=== PATIENT | male | born 1945 ===

== ENCOUNTER 2021-02-14 08:04 | Day surgery (SDC) | payer MEDICARE ==
[~2021-02-14] VITALS: Ht 175.3 cm; Wt 111.2 kg
[2021-02-14] MEDS ORDERED: TRULICITY0.75 MG/0. SQ (08:53)
[2021-02-14] MEDS ORDERED: ELIQUIS 5MG PO (08:53)
[2021-02-14] MEDS ORDERED: CALAN120 MG PO (08:53)
[2021-02-14] MEDS ORDERED: COZAAR 50MG50 MG/TAB PO (08:55)
[2021-02-14] MEDS ORDERED: MAXZIDE-25MG TA1 TAB PO (08:55)
[2021-02-14] MEDS ORDERED: ZYLOPRIM 300MG300 MG PO (08:56)
[2021-02-14] MEDS ORDERED: NAPROSYN500 MG PO (08:56)
[2021-02-14] MEDS ORDERED: TRELEGY ELLIPT1 EACH IH (08:56)
[2021-02-14] MEDS ORDERED: B-12 500 MCG PO (08:57)
[2021-02-14] MEDS ORDERED: VITAMIN E 400 U4001 PO (08:57)
[2021-02-14] MEDS ORDERED: VITAMIN C500 MG PO (08:57)
[2021-02-14] MEDS ORDERED: NATURAL POTASS595 MG PO (08:58)
[2021-02-14] MEDS ORDERED: EPA FISH OIL1 SGL PO (08:58)
[2021-02-14] MEDS ORDERED: SINGULAIR 110 MG/TAB PO (09:03)
[2021-02-14 09:22] VITALS: BP 157/75; PULSE 59; TEMP 98
[2021-02-14 09:24] LABS: HEMATOCRIT 48.2 % (42.0-52.0); HEMOGLOBIN 15.3 g/dl (13.5-18.0); MEAN CELL VOLUME 89 fl (80.0-100.0); MEAN CORPUSCULAR HEMOGLOBIN 28 pg (27.0-31.0); MEAN CORPUSCULAR HGB CONC 32 g/dl (33.0-37.0); MEAN PLATELET VOLUME 10.6 fl (7.4-10.4); PLATELET COUNT 224 K/mm3 (130-400); RED BLOOD COUNT 5.43 M/mm3 (4.20-5.60); REDCELL DISTRIBUTION WIDTH-CV 14.6 % (11.5-14.5)
[2021-02-14 09:27] LABS: INR 1.5 (0.8-3.0); PROTHROMBIN TIME 17.1 SECONDS (9.7-12.8)
[2021-02-14 09:34] LABS: CALCIUM 8.7 mg/dL (8.4-10.2); CREATININE, serum 1.2 (0.66-1.25); MAGNESIUM 2.1 mg/dL (1.6-2.3); POTASSIUM 4.4 mmol/L (3.4-5.0)
[2021-02-14 10:04] LABS: THYROID STIMULATING HORMONE 5.28 uIU/mL (0.465-4.680)
[2021-02-14 10:22] LABS: BAND 1 % (0-10); EOSINOPHIL 23 % (0-4); LYMPHOCYTE 19 % (20.0-51.0); NEUTROPHILS 52 % (42.0-75.2); PLATELET ESTIMATE NORMAL (NORMAL)
[2021-02-14] MEDS ORDERED: MULTAQ400 MG PO (10:34)
[2021-02-14 10:45] VITALS: BP 139/67; PULSE 77
[2021-02-14 11:00] VITALS: BP 137/67; PULSE 74
[2021-02-14 11:15] VITALS: BP 135/82; PULSE 72
[2021-02-14 11:30] VITALS: BP 137/79; PULSE 76
[2021-02-14 11:45] VITALS: BP 147/70; PULSE 83
--- NOTE | 2021-02-14 12:36 | NUR ---
DC instructions reviewed with pt and . Both express understanding. Pt aware that he should not take his usual morning dose of eliquis as it was given here following procedure. He is steady on feet. Taking PO fluids without issue. IV DC'd with catheter intact. He is assisted out by wheelchair to 's car.
== END 2021-02-14 12:00 | disposition home or self-care (01) ==
LOC: COL.CAR 08:04
PROVIDERS: Internal Medicine Cardiovascular Disease
DX: I48.91 Unspecified atrial fibrillation (principal); I10 Essential (primary) hypertension; E11.9 Type 2 diabetes mellitus without complications; G47.30 Sleep apnea, unspecified; J32.9 Chronic sinusitis, unspecified; E66.9 Obesity, unspecified; J45.909 Unspecified asthma, uncomplicated; J44.9 Chronic obstructive pulmonary disease, unspecified; Z90.89 Acquired absence of other organs; Z86.16 Personal history of COVID-19; Z87.891 Personal history of nicotine dependence; Z88.0 Allergy status to penicillin; Z79.84 Long term (current) use of oral hypoglycemic drugs; Z79.899 Other long term (current) drug therapy; Z68.36 Body mass index [BMI] 36.0-36.9, adult
CPT/HCPCS: J2704

== ENCOUNTER 2023-09-18 17:32 | Inpatient (IN) | payer MEDICARE ==
[~2023-09-18] VITALS: Ht 175.3 cm; Wt 104.6 kg
[~2023-09-18 17:32] MED LIST: B-12 500 MCG PO; CALAN120 MG PO; COZAAR 50MG50 MG/TAB PO; ELIQUIS 5MG PO; EPA FISH OIL1 SGL PO; MAXZIDE-25MG TA1 TAB PO; MULTAQ400 MG PO; NAPROSYN500 MG PO; NATURAL POTASS595 MG PO; SINGULAIR 110 MG/TAB PO; TRELEGY ELLIPT1 EACH IH; TRULICITY0.75 MG/0. SQ; VITAMIN C500 MG PO; VITAMIN E 400 U4001 PO; ZYLOPRIM 300MG300 MG PO
[2023-09-19 10:46] VITALS: BP 152/85; PULSE 67; TEMP 97.7
[2023-09-19] MEDS ORDERED: PEPCID 20MG TAB20 MG PO (10:49)
[2023-09-19] MEDS ORDERED: CRESTOR 10MG10 MG PO (10:50)
[2023-09-19] MEDS ORDERED: ASPIRIN 81M81 MG/TA2 PO (10:51)
[2023-09-19] MEDS ORDERED: ZYLOPRIM 300MG300 MG PO (10:51)
[2023-09-19] MEDS ORDERED: PLAVIX 75MG TAB75 MG PO (10:52)
[2023-09-19] MEDS ORDERED: LASIX 80MG TABL80 MG PO (10:53)
[2023-09-19] MEDS ORDERED: JARDIANCE10 PO (10:53)
[2023-09-19] MEDS ORDERED: COZAAR 50MG50 MG/TAB PO (10:54)
[2023-09-19] MEDS ORDERED: THEO-24400 MG PO (10:55)
[2023-09-19] MEDS ORDERED: TRELEGY ELLIPT1 EACH IH (10:56)
--- NOTE | 2023-09-19 10:59 | NUR ---
New pt arrived to unit from [facility] via wheelchair. He is a/o x 4, pleasant. Pt has a small skin tear to Left lower goncalves that happened while he was trying to get into a truck to go to the ED for his CVA sx. All other skin is intact. Pt has an ipad w/ proposal editor at the bedside. Denies any other valuable items. Orientation provided to room/unit. Pt is currently off the unit for PT joe.
--- NOTE | 2023-09-19 11:44 | NUR ---
Pt back in his room after working w/ PT. Pt had questions about IPR schedule - scheduled reviewed w/ the pt. Pt sitting up in the recliner. Denies pain/discomfort. Last dose Trulicity was on 09/11 per pt & will bring in today. Pt denies any other needs at this time. Call light in reach. Chair alarm is on.
[2023-09-19 13:03] VITALS: BP_SYST 152
--- NOTE | 2023-09-19 13:04 | NUR ---
Pt off unit w/ PT.
--- NOTE | 2023-09-19 16:11 | NUR ---
Has lack of transportation kept you from medical appts, meetings, work, or from getting things needed for daily living? NO How often do you feel lonely or isolated from those around you? NEVER Over the past 5 days, how much of the time has pain made it hard for you to sleep? FREQUENTLY Over the past 5 days, how often have you limited your participation in therapy due to pain? RARELY/NOT AT ALL Over the past 5 days, how often have you limited your day-to-day activities because of pain? RARELY/NOT AT ALL Have you had 2 or more falls in the past year or any fall with an injury? NO Did you have major surgery during the 100 days prior to admission? NO
[2023-09-19 16:32] VITALS: BP 129/72; PULSE 69; TEMP 98
[2023-09-19 17:13] VITALS: BP_SYST 129
--- NOTE | 2023-09-19 17:33 | NUR ---
Pt sitting up in the recliner eating dinner independently. & son are at the bedside. brought in [facility] - located in [facility]. Pt denies pain/discomfort. Denies other needs. Call light in his reach. Chair alarm is on.
[2023-09-19 20:00] VITALS: BP_SYST 129
--- NOTE | 2023-09-19 20:00 | NUR ---
PT A&0X4. RESTING IN BED. SEE COMPLETED SHIFT REPORT. PT STRONG BILAT, NO DEFICITS NOTED. NO NEEDS AT THSI TIME. GAVE TYLENOL FOR GENERAL ACHES PER REQUEST.
--- NOTE | 2023-09-19 21:00 | NUR ---
RT SET UP CPAP WITH 02 AT 2L. READY FOR SLEEP.
--- NOTE | 2023-09-20 00:30 | NUR ---
ASSISTED PT TO BR WITH WALKER. NEEDED ASSIST WITH SITTING UP ON SIDE OF BED. WEAKER ON RT LEG. UNSTEADY GAIT. VOIDED W/O DIFFICULTY. BACK TO BED. PT ABLE TO LIFT LEGS INTO BED. SCD'S INITIATED. PT REFUSES ON RT LEG R/T LLE ABRASION. CALL LIGHT IN REACH. BED ALARM SET.
[2023-09-20 05:33] VITALS: BP 153/95; PULSE 77; TEMP 97.3
--- NOTE | 2023-09-20 07:24 | NUR ---
Shift report received from night RN. No events reported overnight. Pt sitting up in recliner to eat breakfast. He reports taking Melatonin for sleep last night & slept well. No pain this morning. Call light in reach. Chair alarm on.
[2023-09-20 08:00] VITALS: BP_SYST 153
--- NOTE | 2023-09-20 08:00 | NUR ---
Pt off unit w/ PT.
--- NOTE | 2023-09-20 10:48 | NUR ---
Pt sitting up in recliner listening to music. Pain/discomfort denied. Other needs denied. Call light in reach. Chair alarm on.
--- NOTE | 2023-09-20 13:05 | NUR ---
Pt ambulating off unit w/ PT.
[2023-09-20 17:09] VITALS: BP 163/74; PULSE 77; TEMP 99
--- NOTE | 2023-09-20 17:13 | NUR ---
trailhead construction worker met with patient to welcome him to the IPR unit and discuss discharge planning. Patient reports he lives in [place] with his Ailin, P# [phone]. PCP is Scott Chavez, preferred pharmacy is [facility] in [place]. Patient reports he has been able to afford his medications but they are getting more expensive. SW discussed [facility], [facility] and discussing other options with the pharmacy and primary care physician to see if there was a way to make them more affordable. Patient does not have a DPOA-HC but wanted a form to review and may be interested in completing one during his hospital stay. Patient reports he has oxygen and a cane at home. Patient reports being independent with ADLS prior to hospitalization. is able to transport to and from appointments while he recovers. Patient is interested in home health services if recommended at discharge. Patient has questions about getting on disability through the social security office, SW will follow up with the patient on this.
--- NOTE | 2023-09-20 18:13 | NUR ---
Pt sitting up in recliner watching tv. Pain/discomfort denied. Other needs denied. Call light in reach. Chair alarm on.
[2023-09-20 19:00] VITALS: BP_SYST 163
--- NOTE | 2023-09-20 20:30 | NUR ---
PT RESTING IN BED. A&OX4. PLEASANT AND COOPERATIVE. SEE COMPLETED SHIFT ASSESSMENT. C/O OF GENERAL ACHES. SEE MAR FOR TYLENOL GIVEN. PT W/UNSTEADY GAIT. DRAGS LT FOOT ALITTLE. PT APPEARS SL BOW LEGGED. NEEDS CUES FOR WALKER SAFETY. LEAVES IT BEHIND. CALL LIGHT IN REACH. BED ALARM SET.
[2023-09-21 05:24] VITALS: BP 154/79; PULSE 64; TEMP 97.9
--- NOTE | 2023-09-21 05:58 | NUR ---
PT HAS BEEN SITTING IN RECLINER FOR A FEW HOURS. DENIES NEEDS. CALL LIGHT IN REACH. CHAIR ALARM SET.
[2023-09-21 07:19] VITALS: BP_SYST 154
--- NOTE | 2023-09-21 09:39 | NUR ---
Patient alert and oriented x4 this morning. Shift assessment complete, no new variances noted. Patient sitting up in recliner upon entering room, denies pain at this time. Tolerated breakfast well. Mood is pleasant. Scattered bruising noted to skin, large bruise note to ankles and sides of feet. Skin tear to left elbow closed, dressing CDI. Abrasion to right goncalves closed. Dressing CDI. Call light within reach, all needs met at this time. Fall precautions in place.
[2023-09-21] MEDS ORDERED: DESYREL 50MG50 MG PO (10:23)
[2023-09-21] MEDS ORDERED: UNIPHYL 400MG400 MG PO (10:23)
--- NOTE | 2023-09-21 12:23 | NUR ---
Data: Patient accepted [facility] visit offered during Manager Behavioral rounds. Assessment: Patient is outgoing and enjoys conversation. Plan of Care: Manager Behavioral provided supportive listening as Patient discussed his stroke and reviewed his life. Patient accepted a rosary from Manager Behavioral. Manager Behavioral offered a prayer.
--- NOTE | 2023-09-21 14:58 | NUR ---
Patient remains stable. Up in recliner with chair alarm on, tolerates ambulation to bathroom and back well x1 with walker. Visitors at bedside, call light within reach.
[2023-09-21 17:33] VITALS: BP 145/78; PULSE 76; TEMP 97.6
[2023-09-21 18:30] VITALS: BP_SYST 145
--- NOTE | 2023-09-22 05:11 | NUR ---
PT UP TO BR THEN TO RECLINER. SL UNSTEADY AT TIMES W. WALKER. LLE WEAKER THAN RT. PT ADMITS TO LUE WEAKNESS BUT GETTING BETTER.
[2023-09-22 05:45] VITALS: BP 150/79; PULSE 79; TEMP 98.3
[2023-09-22 06:57] VITALS: BP_SYST 150
--- NOTE | 2023-09-22 06:58 | NUR ---
Shift report received from night RN. Pt sitting up in recliner for breakfast. Denies pain/discomfort. No events reported overnight. Call light in reach. Chair alarm on.
--- NOTE | 2023-09-22 10:59 | NUR ---
Pt off unit for Group Therapy.
--- NOTE | 2023-09-22 12:12 | NUR ---
Pt sitting up in the recliner to eat lunch. Pt denies pain & denies other needs. Family members are at the bedside & brought lunch for the pt. Pt has his call light in reach. Chair alarm is on.
[2023-09-22 17:28] VITALS: BP 159/74; PULSE 74; TEMP 97.6
--- NOTE | 2023-09-22 17:40 | NUR ---
Pt sitting up in the recliner watching tv after eating approx 80% of his dinner independently. Pt denies pain/discomfort. Denies other needs. Call light in reach. Chair alarm on.
[2023-09-22 18:30] VITALS: BP_SYST 159
--- NOTE | 2023-09-22 20:15 | NUR ---
PT RESTING IN BED. STILL IMPULSIVE AND FORGETFUL. NO FURTHER DIARRHEA FOR SEVERAL DAYS AFTER SHE HAD RECEIVED LAXITIVES. STILL IN ISOLATION UNTIL STOOL IS OBTAINED. WILL ASK FOR ISOLATION DC. PT C/O PERSISTENT FULTON. VSS. SEE MAR FOR OXYCODONE GIVEN. HERE. VERY SUPPORTIVE. CALL LIGHT IN REACH. BED ALARM SET.
--- NOTE | 2023-09-22 21:00 | NUR ---
PT REQUESTED MIRALAX. GIVEN.
--- NOTE | 2023-09-23 04:00 | NUR ---
PT ASSISTED CGA WITH WALKER TO BR. VOIDED W/O DIFFICULTY. AMB TO RECLINER. CPAP OFF NOW. CHAIR ALARM SET. CALL LIGHT IN REACH. VSS. NO FURTHER NEEDS.
[2023-09-23 04:40] VITALS: BP 123/74; PULSE 76; TEMP 97.7
[2023-09-23 07:16] VITALS: BP_SYST 123
--- NOTE | 2023-09-23 07:17 | NUR ---
Shift report received from night RN. No events reported overnight. Pt sitting up in the recliner waiting for breakfast. Pain/discomfort denied. Other needs denied. Call light in reach. Chair alarm on.
--- NOTE | 2023-09-23 13:10 | NUR ---
Pt sitting up in recliner waiting for lunch tray to arrive. Pt has had no complaints of pain/discomfort throughout this shift so far. Other needs denied. Call light in reach. Chair alarm on.
--- NOTE | 2023-09-23 16:31 | NUR ---
Pt supervised as he stood from bed to transfer to recliner. Pt has a visitor at the bedside. Pain/discomfort denied. Other needs denied. Call light in reach. Chair alarm on.
[2023-09-23 18:00] VITALS: BP 170/95; PULSE 72; TEMP 98
[2023-09-23 19:35] VITALS: BP_SYST 170
--- NOTE | 2023-09-23 19:36 | NUR ---
Received change of shift report from day shift nurse. Patient up in chair at this time, denies any needs or questions at this time.
[2023-09-23 22:15] VITALS: BP 146/75; PULSE 53
--- NOTE | 2023-09-24 02:12 | NUR ---
Patient resting with eyes closed, breathing even and nonlabored. Did not wake during nursing rounds. Exit alarm on, call light in reach.
[2023-09-24 05:13] VITALS: BP 143/81; PULSE 62; TEMP 97.6
[2023-09-24 07:00] VITALS: BP_SYST 143
--- NOTE | 2023-09-24 07:19 | NUR ---
Change of shift given to day shift nurseDionna. Patient up in chair, exit alarm on, call light in reach.
--- NOTE | 2023-09-24 09:20 | NUR ---
PT SITTING IN CHAIR UPON ENTERING. PT DENIES PAIN AT THIS TIME. PT STATES "IM SUPPOSED TO BE GOING HOME TODAY". THIS NURSE NOTIFIED PT THAT THERE ARE NO ORDERS AT THIS TIME AND THAT THE PT WILL BE UPDATED ACCORDINGLY. MEDS GIVEN PER ORDER AND PT DENIES NEEDS AT THIS TIME
--- NOTE | 2023-09-24 14:34 | NUR ---
Admission QIM scores were reviewed by the team. Code of 4 chosen for oral hygiene was determined by team discussion to be the most usual performance before interventions for this patient during the assessment period. Code of 4 chosen for toileting hygiene was determined by team discussion to be the most usual performance for this patient during the discharge assessment period. Code of 4 chosen for toilet transfers was determined by team discussion to be the most usual performance for this patient during the discharge assessment period. Code of 4 chosen for shower/bathe self was determined by team discussion to be the most usual performance before interventions for this patient during the assessment period. Code of 4 chosen for upper body dressing was determined by team discussion to be the most usual performance before interventions for this patient during the assessment period. Code of 4 chosen for lower body dressing was determined by team discussion to be the most usual performance before interventions for this patient during the assessment period. Code of 3 chosen for putting on/taking off footwear was determined by team discussion to be the most usual performance before interventions for this patient during the assessment period. Code of 4 chosen for sit to lying was determined by team discussion to be the most usual performance before interventions for this patient during the assessment period. Code of 4 chosen for lying to sitting side of bed was determined by team discussion to be the most usual performance before interventions for this patient during the assessment period. Code of 4 chosen for sit to stand was determined by team discussion to be the most usual performance for this patient during the discharge assessment period. Code of 3 chosen for chair/bed to chair transfer was determined by team discussion to be the most usual performance before interventions for this patient during the assessment period. Code of 3 for car transfer was determined by team discussion to be the most usual performance before interventions for this patient during the assessment period. Code of 3 chosen for walking 10 feet was determined by team discussion to be the most usual performance for this patient during the discharge assessment period. Code of 1 chosen for walking 50 feet w/ 2 turns was determined by team discussion to be the most usual performance before interventions for this patient during the discharge assessment period. Code of 88 chosen for walking 150 feet was determined by team discussion to be the most usual performance before interventions for this patient during the assessment period. Code of 3 chosen for walk 10 feet on uneven surface was determined by team discussion to be the most usual performance for this patient during the discharge assessment period. Code of 4 chosen for 1 step was determined by team discussion to be the most usual performance before interventions for this patient during the assessment period. Code of 3 chosen for 4 steps was determined by team discussion to be the most usual performance before interventions for this patient during the assessment period. Code of 3 chosen for 12 steps was determined by team discussion to be the most usual performance before interventions for this patient during the assessment period. - Jia Judd, [facility]
[2023-09-24 16:37] VITALS: BP 147/78; PULSE 73; TEMP 97.6
--- NOTE | 2023-09-24 18:55 | NUR ---
up in chair visiting with family, bedside shift report received from VICK Villareal
[2023-09-24 19:28] VITALS: BP_SYST 147
--- NOTE | 2023-09-24 20:15 | NUR ---
remains up in chair and is watching a movie on his Ipad, full assessment completed, see interventions for further info, denies needs at this time
--- NOTE | 2023-09-24 22:38 | NUR ---
appears to be sleeping, in bed with lights off, eyes closed, resp quiet and easy
--- NOTE | 2023-09-25 00:42 | NUR ---
appears to be sleeping, CPAP on
--- NOTE | 2023-09-25 01:31 | NUR ---
report given to VICK Louis
[2023-09-25 05:40] VITALS: BP 145/83; PULSE 60; TEMP 97.7
[2023-09-25 07:30] VITALS: BP_SYST 145
--- NOTE | 2023-09-25 16:11 | NUR ---
PATIENT IS PLEASANT. AXOX4 VSS. ASSESSMENT COMPLETE SBA TO THE BATHROOM. PATIENT IS NOT COMPLAINING OF ANY PAIN. NO CHANGES. RESTING IN BED WITH VISITORS. X3 BED RAILS UP, BED ALARM ON.
--- NOTE | 2023-09-25 17:45 | NUR ---
sheet metal worker maintenance met with IPR team to discuss patient's progress and potential discharge. Patient's discharge is scheduled for 09/27/23. Sw met with patient's to review the IPR team meeting notes. SW provided a copy. SW offered to have a family meeting prior to patient's discharge. Patient's expressed she would speak with Suresh as he was currently in therapy but she believed he would not need a meeting. Patient informed his that he would like to have outpatient PT at [facility] [place]. MARINE will send the referral for outpatient PT. Discharge plan: Home with OP PT
[2023-09-25 17:48] VITALS: BP 164/72; PULSE 68; TEMP 97.7
[2023-09-25 18:30] VITALS: BP_SYST 164
--- NOTE | 2023-09-25 20:00 | NUR ---
PT SITTING ON SIDE OF BED. A&OX4. DENIES NEEDS AT THIS TIME. CALL LIGHT IN REACH. BED ALARM SET.
--- NOTE | 2023-09-25 22:45 | NUR ---
ASSISTED TO BR W/ FWW. STEADY GAIT. VOIDED. REQUEST RECLINER. CHAIR ALARM SET. CALL LIGHT IN REACH.
[2023-09-26 05:16] VITALS: BP 123/57; PULSE 68; TEMP 97.9
--- NOTE | 2023-09-26 07:15 | NUR ---
RECIEVED REPORT FROM DIVISION OPERATIONS MANAGER RN.
[2023-09-26 07:16] VITALS: BP_SYST 123
[2023-09-26 07:27] LABS: BASO # 0.1 K/mm3 (0.0-0.2); EOS # 1.1 K/mm3 (0.0-0.7); GRAN # 3.9 K/mm3 (1.4-6.5); GRAN % 54.1 % (42.2-75.2); HEMATOCRIT 45.7 % (42.0-52.0); LYMPH # 1.5 K/mm3 (1.2-3.4); LYMPH % 20.9 % (20.0-51.0); MEAN CELL VOLUME 87 fl (80.0-100.0); MEAN CORPUSCULAR HEMOGLOBIN 29 pg (27-31); MEAN CORPUSCULAR HGB CONC 33 g/dl (33.0-37.0); MEAN PLATELET VOLUME 10.9 fl (7.4-10.4); MONO # 0.6 K/mm3 (0.1-0.6); MONO % 8.4 % (1.7-9.3); PLATELET COUNT 258 K/mm3 (130-400); RED BLOOD COUNT 5.23 M/mm3 (4.20-5.60); REDCELL DISTRIBUTION WIDTH-CV 14.9 % (11.5-14.5)
[2023-09-26 07:32] LABS: CALCIUM 9.2 mg/dL (8.4-10.2); CREATININE, serum 1.53 mg/dL (0.72-1.25); POTASSIUM 3.6 mmol/L (3.5-4.5)
--- NOTE | 2023-09-26 08:00 | NUR ---
PT ALERT AND ORIENTED SITTING UP IN CHAIR THIS AM EATING BREAKFAST. VSS, SHIFT ASSESSMENT COMPLETE, SEE DOCUMENTATION. PT IS ONE PERSON ASSIST WITH FWW. EVEN UNLABORED RESPR, DENIES PAIN AT THIS TIME. MEDICATED PER EMAR. CALL LIGHT WITHIN REACH, CHAIR ALARM SET.
--- NOTE | 2023-09-26 13:29 | NUR ---
mental health social worker had a voicemail time stamped at 8 pm on 09/25/23 from patient stating they would like a family meeting today at 1 pm. MARINE notified IPR director. MARINE was notified the IPR team could meet today at 12:45 pm for family meeting. MARINE met with patient, patient's and IPR team to discuss patient's progress in family meeting. Patient is scheduled for discharge tomorrow, 09/27/23. Patient would like outpatient PT/OT at [facility] [place]. MARINE met with patient and reviewed the important message from Medicare regarding his rights. Patient understood and did not have any questions. Patient signed the form, SW placed original in the patient's chart and provided a copy to the patient. Discharge Plan: Home with outpatient PT/OT
--- NOTE | 2023-09-26 15:06 | NUR ---
Will lack of transportation kept you from medical appts, meetings, work, or from getting things needed for daily living? no How often do you feel lonely or isolated from those around you? never Over the past 5 days, how much of the time has pain made it hard for you to sleep? RARELY OR NOT AT ALL Over the past 5 days, how often have you limited your participation in therapy due to pain? RARELY OR NOT AT ALL Over the past 5 days, how often have you limited your day-to-day activities because of pain? RARELY OR NOT AT ALL
[2023-09-26 17:30] VITALS: BP 151/76; PULSE 68; TEMP 97.5
[2023-09-26 19:30] VITALS: BP_SYST 151
--- NOTE | 2023-09-26 20:00 | NUR ---
PT SITTING IN RECLINER. ASSIST TO BR WITH WALKER. STEADY GAIT. SL LT SIDED WEAKNESS BUT IMPROVED. SEE MAR FOR TYLENOL GIVEN FOR BLE ACHINESS. VOIDING W/O DIFFICULTY. READY FOR BED. CALL LIGHT IN REACH. BED ALARM SET. CPAP W/O2 INITIATED.
[2023-09-27 05:25] VITALS: BP 145/89; PULSE 61; TEMP 97.6
[2023-09-27 07:00] VITALS: BP_SYST 145
[2023-09-27] MEDS ORDERED: PRAVACHOL 20MG20 MG PO (08:24)
--- NOTE | 2023-09-27 12:15 | NUR ---
RECIEVED REPORT FROM NIGHT VICK WOOD.
--- NOTE | 2023-09-27 12:18 | NUR ---
PT ALERT AND ORIENTED. SITTING UP IN CHAIR EATING BREAKFAST WITH NO COMPLAINTS OF PAIN. IS ANXIOUS ABOUT GETTING HOME. SHIFT ASSESSMENT COMPLETE, SEE DOCUMENTATION. MEDICATED PER EMAR. VSS, EVEN, ULABORED RESPR. STANDBY ASSSIST WITH FWW. HE WILL GO HOME WITH OUTPT OT, PT. NO FURTHER NEEDS EXPRESSED AT THIS TIME. CALL LIGHT WITHIN REACH.
--- NOTE | 2023-09-27 12:23 | NUR ---
ALL DISCHARGE INSTRUCTIONS WENT OVER AND EXPLAINED. ALL QUESTIONS ANSWERED. PT VERBALIZES UNDERSTANDING. PT ESCORTED OUT BY STAFF TO PRIVATE VEHICLE AT 1145.
--- NOTE | 2023-09-27 14:53 | NUR ---
Discharge QIM scores were reviewed by the team. Code of 6 chosen for toilet transfers was determined by team discussion to be the most usual performance for this patient during the discharge assessment period. Code of 6 chosen for chair to bed was determined by team discussion to be the most usual performance for this patient during the discharge assessment period. Code of 6 chosen for walking 10 feet was determined by team discussion to be the most usual performance for this patient during the discharge assessment period. Code of 6 chosen for walking 50 feet w/ 2 turns was determined by team discussion to be the most usual performance before interventions for this patient during the discharge assessment period. Code of 6 chosen for walking 150 feet was determined by team discussion to be the most usual performance for this patient during the discharge assessment period. Code of 5 chosen for scrap picker objects was determined by team discussion to be the most usual performance for this patient during the discharge assessment period.--Summer Rapp,
--- NOTE | 2023-09-27 16:01 | NUR ---
recording studio setup worker was notified patient changed his mind and would like outpatient PT/OT at [facility] in [place]. SW faxed discharge orders and referral to [facility] in [place]. DIscharge Plan: HOme with OP PT/OT
== END 2023-09-27 11:45 | disposition home or self-care (01) | DRG 57 ==
PROVIDERS: ADMIT Physical Medicine & Rehabilitation Sports Medicine
DX: I69.354 Hemiplegia and hemiparesis following cerebral infarction affecting left non-dominant side (principal); I48.19 Other persistent atrial fibrillation; I69.322 Dysarthria following cerebral infarction; E11.22 Type 2 diabetes mellitus with diabetic chronic kidney disease; N18.30 Chronic kidney disease, stage 3 unspecified; M10.9 Gout, unspecified; I25.10 Atherosclerotic heart disease of native coronary artery without angina pectoris; Z79.82 Long term (current) use of aspirin; Z95.2 Presence of prosthetic heart valve; Z88.0 Allergy status to penicillin; Z88.8 Allergy status to other drugs, medicaments and biological substances; J98.4 Other disorders of lung; M79.10 Myalgia, unspecified site; Z87.891 Personal history of nicotine dependence; Z74.09 Other reduced mobility; R26.89 Other abnormalities of gait and mobility; Z79.85 Long-term (current) use of injectable non-insulin antidiabetic drugs
CPT/HCPCS: A9270; J1650